=== PATIENT | female | born 1985 ===

== ENCOUNTER 2020-10-05 07:30 | Inpatient (IN) | payer OTHER ==
[~2020-10-05] VITALS: Ht 172.7 cm; Wt 3.2 kg
[2020-10-05] MEDS ORDERED: ACID REDUCER20 M1 PO (09:14)
[2020-10-05] MEDS ORDERED: PRENATAL PO (10:04)
[2020-10-12] MEDS ORDERED: PRENATAL + DHA1 EAC1 (13:16)
[2020-10-14] MEDS ORDERED: OXYC1TAB9 PO (07:27)
[2020-10-14] MEDS ORDERED: KETO10TA2 PO (07:27)
== END 2020-10-14 14:14 | disposition home or self-care (01) | DRG 788 ==
LOC: OB/GYN 10-12 07:30 → SURG-SUITE 10-12 10:03 → O/R 10-12 10:03 → OB/GYN 10-12 11:15 → SURG-SUITE 10-12 14:19
PROVIDERS: ADMIT Obstetrics & Gynecology Maternal & Fetal Medicine; ATTEND Obstetrics & Gynecology Maternal & Fetal Medicine
PROC: 4A1HXFZ Monitoring of Products of Conception, Cardiac Rhythm, External Approach (ICD-10-PCS; 2020-10-12)
PROC: 10D00Z1 Extraction of Products of Conception, Low, Open Approach (ICD-10-PCS; principal; 2020-10-12 11:15)
DX: O65.5 Obstructed labor due to abnormality of maternal pelvic organs (principal); O34.211 Maternal care for low transverse scar from previous cesarean delivery; Z3A.39 39 weeks gestation of pregnancy; Z37.0 Single live birth